=== PATIENT | male | born 1950 | race Caucasian/White ===

== ENCOUNTER → 2018-03-18 06:55 | Outpatient (CLI) | payer MEDICARE, OTHER, SELFPAY ==
--- NOTE | 2018-03-18 07:01 | MRI_ITS ---
STUDY: MRI LUMBAR SPINE WITH AND WITHOUT CONTRAST REASON FOR EXAM: Male, 67 years old. Low back pain, bilateral hip burning and numbness of both feet. TECHNIQUE: Standardized fat and water weighted pulse sequences were obtained in the sagittal and axial planes. 10 ml of Gadavist contrast material was administered for the contrast portion of the examination. COMPARISON: 11/22/2009. FINDINGS: T11-T12: (Sagittal only). Normal endplates. Normal disc height with minimal loss of disc hydration. Normal disc morphology. Normal central canal and bilateral intervertebral neural foramina. T12-L1: (Sagittal only). Normal endplates. Normal disc height with mild loss of disc hydration. Normal disc morphology. Normal central canal and bilateral intervertebral neural foramina. Normal lumbar lordosis. There is no substantial scoliosis. Normal conus medullaris that terminates at the lower L1 vertebral body level. L1-2: Normal endplates. Normal disc height and morphology. Mild loss of disc hydration. Normal central canal and bilateral lateral recesses. Normal facet joints. Normal bilateral intervertebral neural foramina. L2-3: Normal endplates. Normal disc height, hydration and morphology. Normal bilateral facet joints. Normal central canal and bilateral lateral recesses. Normal bilateral intervertebral neural foramina. L3-4: Prominent left anterior marginal spurs contains anterior disc protrusion. These are unchanged. Left-sided disc space height narrowing is unchanged. No extruded disc fragment. Normal central canal and bilateral lateral recesses. Mild left degenerative facet arthropathy. Normal right facet joint. Normal bilateral intervertebral neural foramina. L4-5: Anterior marginal spurs. Moderate disc space height narrowing. Modic type II degenerative vertebral marrow fatty changes underneath the right side of the vertebral endplates. Normal central canal and bilateral lateral recesses. Mild to moderate asymmetric degenerative facet arthropathy. Normal bilateral intervertebral neural foramina. L5-S1: Vertically oriented metallic screw fusing L5 and S1 with signal distortion. Pronounced disc space height narrowing. Normal central canal and bilateral lateral recesses. There are penetrating metallic screws in both L5-S1 facet joints. Normal bilateral intervertebral neural foramina. Normal visualized sacral ala. Normal visualized paraspinous soft tissue structures. No abnormal enhancing lesions intradural and extradural he. MRI/Spine Lumbar W/WO Contrast IMPRESSION: 1. Interval anterior fusion of the L5 and S1 vertebral bodies by a vertically oriented metallic screw and interval placement of metallic screws penetrating the L5-S1 facet joints. 2. Modic type II degenerative ventricular marrowfat changes underneath the right side of the vertebral endplates at L4-L5 disc level and moderate disc space height narrowing. Disc level is unchanged. 3. Left-sided L3-L4 disc space height narrowing and mild left degenerative facet arthropathy. This is unchanged. 4. No MRI evidence of lumbar extruded disc fragment or spinal stenosis. Electronically Signed: Ruiz Lancaster MD at 9:30 EDT , Service support ,
[2018-03-18 08:35] LABS: CREATININE FINGERSTICK 0.7 mg/dL (0.70-1.30); EGFR FINGERSTICK > 60.0000 mL/min (>60)
== END ==
PROVIDERS: Visit Provider Orthopaedic Surgery
DX: M48.062 Spinal stenosis, lumbar region with neurogenic claudication (principal)
CPT/HCPCS: 72158; A9585

== ENCOUNTER 2018-07-30 11:30 | Outpatient (RCR) | payer MEDICARE, OTHER, SELFPAY ==
--- NOTE | 2018-07-01 13:59 | HP.PTEVAL ---
Patient's Visit Information DIEGO SANTIAGO is a 67 year old M referred to Physical Therapy by Kristian Sawyer with a diagnosis of S/P lumbar fusion. Date of Evaluation: 06/28/18 Physical Therapist: Jony Faria - Visit Plan Frequency: 2x /Week Duration: 6-8 weeks Plan: Start with core stability exercises and hip strengthening in aquatic setting, progress as tolerated. - Subjective Subjective: Pt. is here today for his initial evaluation with S/P lumbar spinal fusion. DOS: May 13. Pt. reprots having pain across his lumbar spine. Pt. reports increased pain with lifting, uncomfortable to get to sleep, walking. Decrease pain: linoment, creams, heat reduce symptoms. Pt. denies N/T in bilateral, no pain in BLEs. Pt. does have trouble sleeping, but has always had some symptoms. Pt. denies any radiating pain at this point in time. He did report that he was using horse liniment on his incision has noticed bubbling up at his R lateral incision. Pt. denies fever or other signs of infection. He reporte this started just a few days ago. Pt. would like to play softball again without symptoms. - Pain Lumbar spine Pain Intensity (Out of 10): 4 Pain Intensity Range: 2, 6 - Objective POSTURE: Pt/ has slight reduction in lumbar lordosis, Pt. has normal iliac crest hieghts, slight flexed posture in sitting. Pt. has slight FH posture as well. PALPATION: Pt. has normal incision except for his vertical incision on the right side is raised at top, almost blister like. Pt. reports this is new since using horse liniment on back for soreness. No increased redness noted, no other signs of infection. NEUROLOGICAL: normal all intact. ROM: lumbar spine- flexion mod loss, ext mod loss, SB min loss bilat NE, rotation min loss bilat increase NW. Pt. has tight HS bilaterally, tight hip flexors bilaterally. Pt. reports no pain with ROM testing, just tightness. MMT: RLE- ankle 5/5 throughout, great toe ext 5/5; knee- ext 5-/5, flexion 5-/5; hip- flexon 4/5, abd 4/5, ext 4/5. LLE- ankle 5/5 throughout, great toe ext 5/5; knee- ext 5-/5, flexion 5-/5; hip- flexon 4/5, abd 4/5, ext 4/5. Core strength- poor. GAIT: Pt. ambulates with decreased arm swing with gait, slight flexed posture. No signs of BLE weakness. STAIRS: PT. is able to negotiate with reciprocal pattern without signs of weakness. - Goals Goal 1:: Pt. to be I with HEP. Goal Time Frame: 4-6 Weeks Goal 2:: Pt. to have increased BLE and core strength by 1/2 grade of effected musculature to reduce stress applied to lumbar spine. Goal Time Frame: 4-6 Weeks Goal 3:: Pt. to have increased HS length by 25% allowing for increased mobility and proper pelvic positioning. Goal Time Frame: 4-6 Weeks Goal 4:: Pt. to ambulate unlimited distances without increase in symptoms. Goal Time Frame: 4-6 Weeks Goal 5:: Pt. to sleep without increase in symptoms. Goal Time Frame: 4-6 Weeks - Rehabilitation Potential Physical Therapy Diagnosis: Pt. has signs and symptom consistent with post lumbar fusion. Pt. has subsequent core weakness and lumbar hypomobility. Pt. would benefit from PT to address above limitations progressing back to prior levels of function. Rehabilitation Potential: Good - Anticipated Interventions Patient/Client Instruction: Educate patient on: Condition, Plan of Care, Risk Factors, Benefits of Fitness Program For the Purpose of:: To foster healthy habits, To improve decision making, To facilitate caregiver knowledge, To improve self management, To prevent re-injury, To improve ability to perform tasks related to life management, To improve tolerance to ADL's Therapeutic Exercise to Include: Strength training, Power training, Postural training, Flexibilty training, In an aquatic setting, Passive ROM, Active ROM, Dynamic Lumbar Stabilization, Gisela Exercises For the Purpose of:: To decrease pain, To decrease swelling/inflammation, To increase ROM, To improve nutrient delivery to tissue, To increase oxygenation perfusion, To improve muscle performance and motor function, To improve ability to perform ADL's, To improve performance and independence with ADL's, To decrease level of supervision to perform tasks, To improve ability of physical actions for home/community/work/leisure, To improve health of tissue, To decrease soft tissue restriction, To increase flexibility/ROM, To improve endurance Thank you for the opportunity to evaluate your patient. For Medicare and Medicare HMO plans, please review the plan of care and approve it. It will need to be FAXED BACK to us at [phone] for Medicare purposes. Please let me know if there are questions or concerns regarding this plan of care. Physician Signature: Date:
--- NOTE | 2018-07-30 12:23 | HP.PTDCSUM_ITS ---
HP - PT D/C Summary It has been my pleasure to treat DIEGO SANTIAGO under orders from Kristian Sawyer, for the diagnosis of S/P lumbar fusion for a total of 10 visit(s). Discharge Date: 07/30/18 Please see the following information for a summary of their discharge status. - Subjective Subjective: Pt. reports that he is walking with minimal pain, but does have some burning in his hips. His greatest complaint is with attempting to sleep. He still has increased pain at night. I talked with him about reducing walking a bit, as he reports averaging ~8-10miles per day. Pt. does report occassional sharp pain in bilateral legs and feet, but goes away quickly. pt. reports being 40% better overall, but is concerned about his pain at night. - Pain Lumbar spine Pain Intensity (Out of 10): 3 BLAT LEs Pain Intensity (Out of 10): 2 - Overall Improvement % Improvement: 40 - Objective Objective/Function: ROM: lumbar spine: flexion min loss NE, ext mod loss ( tightness), SB min loss (tightness), rotation min/mod loss bilat (tightness). Pt. has increased HS tightness bilaterally, but improved. MMT: RLE- 5/5 throughout, except 4+/5 hip ext and hip abd. LLE-5/5 throughout, except 4+/5 hip ext and hip abd. Core strength- fair. GAIT: Pt. ambulates without AD. He has round shoulders with slight flexed posture throughout. Pt. has normal step length, but decreased arm swing. STAIRS: Normal pattern with 1 HR. - Goals Goal 1:: Pt. to be I with HEP. Goal Progress: Goal Met Goal 2:: Pt. to have increased BLE and core strength by 1/2 grade of effected musculature to reduce stress applied to lumbar spine. Goal Progress: Goal Met Goal 3:: Pt. to have increased HS length by 25% allowing for increased mobility and proper pelvic positioning. Goal Progress: Progressing Goal 4:: Pt. to ambulate unlimited distances without increase in symptoms. Goal Progress: Progressing Goal 5:: Pt. to sleep without increase in symptoms. Goal Progress: Not Progressing - Plan Plan: Pt. would benefit from further PT to work on decreasing symptoms, core stability and strength. Pt. would like to transfer care to closer location for him at this point in time. - D/C Information Discharge Comments: Pt. was seen for his low back pain after surgery. Pt. reprots not progressing as well as he would have liked and is still having increased LBP and leg pain, greatest at night. He was seen in aquatic setting with focus on postural control/core strengthening. He still has expected stiffness in his lumbar spine, but has improved BLE and core strength. At this time I would recommend extended PT to focus on stability and increased fluid mobility. Pt. would like to transfer care to closer facility to home. Pt. to follow up with physician later this week. If there are questions or concerns regarding this patient's physical therapy, please feel free to call me at [phone]. Thank you for the referral of this patient. Sincerely, Jony Faria
== END 2018-07-30 13:47 | disposition home or self-care (01) ==
LOC: PT 11:30
PROVIDERS: Visit Provider Orthopaedic Surgery
DX: Z98.1 Arthrodesis status (principal)
CPT/HCPCS: 97113; 97162; 97530